=== PATIENT | male | born 1985 | race Caucasian/White ===

== ENCOUNTER 2021-11-13 15:12 | Emergency (ER) | payer SELFPAY ==
[~2021-11-13] VITALS: Ht 170.2 cm; Wt 55.8 kg
[2021-11-13] MEDS ORDERED: IVER1TAB PO (16:41)
[2021-11-13 16:51] VITALS: BP 132/80
== END 2021-11-13 16:52 | disposition home or self-care (01) ==
LOC: M ED 15:12
DX: R21 Rash and other nonspecific skin eruption (principal); B89 Unspecified parasitic disease; F17.200 Nicotine dependence, unspecified, uncomplicated; Z88.0 Allergy status to penicillin